=== PATIENT | female | born 1990 | race Caucasian/White ===

== ENCOUNTER → 2021-06-04 23:10 | Observation (INO) ==
[2021-06-04 22:03] LABS: Bacteria,Urine Few per hpf (None-Few); Bilirubin,Urine Negative (Negative); Blood,Urine Negative (Negative); Calcium Oxalate Crystals,Urine Present per hpf; Clarity,Urine Turbid (Clear); Color,Urine Light-Yellow (Yellow); Glucose,Urine (UA) Normal (Normal); Ketones,Urine 80 mg/dL (Negative); Leukocyte Esterase,Urine Trace (Negative); Mucus,Urine Few per lpf (None-Few); Nitrite,Urine Negative (Negative); PH,Urine 6.5 pH Units (5.0-8.0); Protein,Urine Trace mg/dL (Neg-Trace); RBC,Urine 0-3 per hpf (0-3); Squamous Epithelial Cell,Urine Few per hpf (None-Few); Urobilinogen,Urine Normal (Normal)
[2021-06-04 22:52] LABS: Adenovirus Not Detected (Not Detect); Bordetella Pertussis Not Detected (Not Detect); Chlamydophila pneumoniae Not Detected (Not Detect); Coronavirus 229E Not Detected (Not Detect); Coronavirus HKU1 Not Detected (Not Detect); Coronavirus NL63 Not Detected (Not Detect); Coronavirus OC43 Not Detected (Not Detect); Human Metapneumovirus Not Detected (Not Detect); Human Rhinovirus/Enterovirus Not Detected (Not Detect); Influenza A Subtype 2009 H1 Not Detected (Not Detect); Influenza B Not Detected (Not Detect); Mycoplasma pneumoniae Not Detected (Not Detect); Parainfluenza Virus 1 Not Detected (Not Detect); Parainfluenza Virus 2 Not Detected (Not Detect); Parainfluenza Virus 3 Not Detected (Not Detect); Parainfluenza Virus 4 Not Detected (Not Detect); Respiratory Syncytial Virus Not Detected (Not Detect)
[2021-06-04 22:55] LABS: SARS-CoV-2 DETECTED (Not Detect)
== END | disposition home or self-care (01) ==
LOC: 1NENULAB
PROVIDERS: ADMIT Obstetrics & Gynecology; ATTEND Obstetrics & Gynecology

== ENCOUNTER 2021-07-16 03:59 | Inpatient (IN) ==
[2021-07-16] MEDS ORDERED: *HR* Nalbuphine 10 MG/ML AMPUL IV PRN (04:13)
[2021-07-16] MEDS ORDERED: Famotidine 20 MG/2 ML VIAL IVP PRN (04:13)
[2021-07-16] MEDS ORDERED: Metoclopramide 10 MG/2 ML VIAL IVP PRN (04:13)
[2021-07-16] MEDS ORDERED: miSOPROStoL 25 MCG TABLET PO PRN (04:13)
[2021-07-16] MEDS ORDERED: Lidocaine 1% 20 ML MDV INFILT PRN (04:13)
[2021-07-16] MEDS ORDERED: Naloxone 0.4 MG/ML INJ IVP PRN (04:13)
[2021-07-16] MEDS ORDERED: D5% in 0.45% NACL 1,000 ML IVC SCH (04:30)
[2021-07-16] MEDS ORDERED: Ringers Solution, Lactated 1,000 ML ONE ×2 (04:30→14:26)
[2021-07-16 04:53] LABS: Basophils % 0.2 %; Eosinophils # 0.1 K/mcL (0.0-0.6); Hematocrit 39.7 % (35.3-44.9); Hemoglobin 13.3 g/dL (11.5-15.4); Immature Granulocytes % 0.5 % (0-4); Lymphocytes # 1.6 K/mcL (0.6-4.6); Lymphocytes % 15.9 %; Mean Corpuscular HGB Conc 33.5 g/dL (31.6-35.5); Mean Corpuscular Hemoglobin 30.6 pg (28.0-33.3); Mean Corpuscular Volume 91.3 fL (83.0-100.0); Mean Platelet Volume 10.7 fL (9.4-12.4); Monocytes # 0.8 K/mcL (0.0-1.3); Monocytes % 8.6 %; Neutrophils # 7.2 K/mcL (1.6-8.9); Platelet Count 221 K/mcL (140-400); Red Blood Count 4.35 M/mcL (3.82-4.97); Red Cell Distribution Width 12.9 % (11.5-14.5); Segmented Neutrophils % 73.8 %; White Blood Count 9.8 K/mcL (4.3-11.1)
[2021-07-16 05:02] LABS: Amphetamine Screen,Urine Negative ng/mL (Cutoff=1000); Barbiturate Screen,Urine Negative ng/mL (Cutoff=200); Benzodiazepines Screen,Urine Negative ng/mL (Cutoff=200); Cannabinoid Screen,Urine Negative ng/mL (Cutoff = 50); Cocaine Screen,Urine Negative ng/mL (Cutoff= 300); Opiate Screen,Urine Negative ng/mL (Cutoff=300); Phencyclidine Screen,Urine Negative ng/mL (Cutoff=25)
[2021-07-16 05:12] LABS: Alanine Aminotransferase 10 Units/L (7-52); Aspartate Amino Transferase 18 Units/L (13-39); BUN/Creatinine Ratio 18 (6-26); Blood Urea Nitrogen 10 mg/dL (6-20); Uric Acid 4.7 mg/dL (2.3-7.6); eGFR For African Americans > 60 (> 60); eGFR For Non-African Americans > 60 (> 60)
[2021-07-16 05:28] LABS: Creatinine,Urine 35 mg/dL; Protein/Creatinine Ratio,Urine 0.26 mg/mg (0.00-0.20)
[2021-07-16 05:51] LABS: Lactate Dehydrogenase 171 Units/L (140-271)
[2021-07-16] MEDS ORDERED: EPHEDrine 50 MG/ML VIAL IVP PRN (08:14)
[2021-07-16] MEDS ORDERED: Epidural Premix (fent/bupiv) 110 ML EP SCH (08:15)
[2021-07-16] MEDS ORDERED: Oxytocin 20 units/ LR 1000 mL 20 UNIT/1,000 ML BAG IVC SCH (09:30)
[2021-07-17] MEDS ORDERED: Ringers Solution, Lactated 2,000 ML ONE (00:23)
[2021-07-17] MEDS ORDERED: Ropivacaine/PF 0.2% 20 ML VIAL ONE (00:38)
[2021-07-17] MEDS ORDERED: *HR* FentaNYL (PF) 100 MCG/2 ML VIAL ONE (00:38)
[2021-07-17] MEDS ORDERED: Ondansetron 4 MG/2 ML VIAL ONE (05:58)
[2021-07-17] MEDS ORDERED: Ondansetron 4 MG/2 ML VIAL IVP PRN (06:00)
[2021-07-17] MEDS ORDERED: Oxytocin 20 units/ LR 1000 mL 20 UNIT/1,000 ML BAG IVC SCH (09:08)
[2021-07-17] MEDS ORDERED: Benzocaine/Menthol 56 GM AEROSOL SPRAY TP PRN (09:08)
[2021-07-17] MEDS ORDERED: Prenatal Vit/FA 1 EACH TABLET PO SCH (09:08)
[2021-07-17] MEDS ORDERED: Lanolin 7 G OINT...G. TP PRN (09:08)
[2021-07-17] MEDS ORDERED: Oxytocin 20 units/ LR 1000 mL 20 UNIT/1,000 ML BAG IVC ONE (09:08)
[2021-07-17] MEDS ORDERED: Ondansetron ODT 4 MG TAB.RAPDIS SL PRN (09:08)
[2021-07-17] MEDS ORDERED: *HR* OxyCODONE Immed Rel 5 MG TABLET PO PRN ×4 (09:08→20:17)
[2021-07-17] MEDS: Ibuprofen 600 MG TABLET PO SCH ×2 (12:31→19:58)
[2021-07-17] MEDS: Acetaminophen 325 MG TABLET PO SCH ×2 (12:31→19:57)
[2021-07-17] MEDS ORDERED: Gabapentin 100 MG CAPSULE PO PRN (20:13)
[2021-07-18] MEDS: Acetaminophen 325 MG TABLET PO SCH ×2 (02:45→10:12)
[2021-07-18] MEDS: Ibuprofen 600 MG TABLET PO SCH ×2 (02:45→10:13)
[2021-07-18 02:57] VITALS: O2SAT 100
[2021-07-18 03:43] LABS: Basophils % 0.2 %; Eosinophils % 0.2 %; Hematocrit 35.6 % (35.3-44.9); Hemoglobin 12.1 g/dL (11.5-15.4); Immature Granulocytes % 0.7 % (0-4); Lymphocytes # 1.6 K/mcL (0.6-4.6); Lymphocytes % 9.3 %; Mean Corpuscular Hemoglobin 31.4 pg (28.0-33.3); Mean Corpuscular Volume 92.5 fL (83.0-100.0); Mean Platelet Volume 10.5 fL (9.4-12.4); Monocytes # 0.9 K/mcL (0.0-1.3); Monocytes % 5.2 %; Neutrophils # 14.6 K/mcL (1.6-8.9); Platelet Count 183 K/mcL (140-400); Red Blood Count 3.85 M/mcL (3.82-4.97); Red Cell Distribution Width 13.1 % (11.5-14.5); Segmented Neutrophils % 84.4 %
[2021-07-18 03:44] LABS: White Blood Count 17.3 K/mcL (4.3-11.1)
[2021-07-18 07:49] VITALS: BP 94/58; PULSE 68; TEMP 98
== END 2021-07-18 13:58 | disposition home or self-care (01) | DRG 807 ==
LOC: 1NENULAB 03:59 → 1NENUOBS 07-17 11:27
PROVIDERS: ADMIT Obstetrics & Gynecology; ATTEND Obstetrics & Gynecology